=== PATIENT | female | born 1990 | race Caucasian/White ===

== ENCOUNTER 2024-06-25 02:53 | Emergency (ER) | payer SELFPAY ==
[~2024-06-25] VITALS: Ht 165.1 cm; Wt 70.3 kg
[2024-06-25 02:55] VITALS: PULSE 76; RESP 18; TEMP 98.3
[2024-06-25] MEDS ORDERED: LIDOCAINE HCL 1% LOCAL INJ 20 ML VIAL ONE (03:16)
[2024-06-25] MEDS: LIDOCAINE HCL 1% LOCAL INJ 20 ML VIAL INJ ONE (03:58)
[2024-06-25] MEDS: AZITHROMYCIN 250 MG TAB PO ONE (03:58)
[2024-06-25] MEDS: CEFTRIAXONE 500 MG VIAL IM ONE (03:58)
[2024-06-25 04:36] VITALS: BP 128/84; PULSE 74; RESP 18; TEMP 98.3; O2SAT 98
== END 2024-06-25 04:29 | disposition home or self-care (01) ==
LOC: FSED 03:00
DX: A64 Unspecified sexually transmitted disease (principal); F17.210 Nicotine dependence, cigarettes, uncomplicated
CPT/HCPCS: 81025; 99283; J0696; J2003